=== PATIENT | female | born 1940 | race Caucasian/White ===

== ENCOUNTER 2023-03-10 03:00 | Inpatient (IN) | payer OTHER ==
[~2023-03-10] VITALS: Ht 160 cm; Wt 65.6 kg
[2023-03-10] VITALS (7 sets, daily range): BP systolic 107–133; BP diastolic 47–60; PULSE 55–83; RESP 17–18; TEMP 97.8–98; O2SAT 90–97
[2023-03-10 03:24] LABS: Basophils # (auto) 0.1 10 ^3/uL (0-0.2); Basophils % (auto) 0.9 % (0.0-2.0); Eosinophils # (auto) 0 10 ^3/uL (0-0.8); Eosinophils % (auto) 0.2 % (0.0-7.0); Hematocrit 42.7 % (36.0-46.0); Hemoglobin 14.1 g/dL (12.2-16.2); Lymphocytes % (auto) 9.2 % (10.0-50.0); Mean Corpuscular Hemoglobin 29.3 pg (28.0-32.0); Mean Corpuscular Hgb Conc. 33.1 g/dL (32.0-36.0); Mean Corpuscular Volume 88.7 fL (80.0-100.0); Monocytes # (auto) 0.2 10 ^3/uL (0-1.3); Monocytes % (auto) 2.1 % (0.0-12.0); Neutrophils # (auto) 9.2 10 ^3/uL (1.6-8.6); Neutrophils % (auto) 87.6 % (37.0-80.0); Red Blood Cells 4.82 10^6/uL (4.0-5.20); Red Cell Distribution Width 18.4 % (11.8-14.3); White Blood Cell 10.5 10^3/uL (4.4-10.8)
[2023-03-10] MEDS ORDERED: ONDANSETRON HCL 4 MG/2 ML VIAL IV ONE (03:30)
[2023-03-10] MEDS ORDERED: HYDROmorphone HCL 2 MG/ML VL/or syr IV ONE (03:30)
[2023-03-10] MEDS ORDERED: SODIUM CHLORIDE 0.9% 500 ML IV ONE (03:30)
[2023-03-10 03:42] LABS: Albumin 4.5 g/dL (3.2-4.8); Alkaline Phosphatase 111 U/L (46-116); Anion Gap 8 (5-15); Aspartate Aminotransferase 10 U/L (13-40); BUN/Creatinine Ratio 9.8 (10.0-20.0); Blood Urea Nitrogen 17 mg/dL (9-23); Calcium 11.1 mg/dL (8.7-10.4); Carbon Dioxide 28 mmol/L (20-30); Chloride 101 mmol/L (98-107); Glucose 211 mg/dL (74-106); Magnesium 1.9 mg/dL (1.6-2.6); Potassium 4.2 mmol/L (3.5-5.1); Sodium 137 mmol/L (136-145)
[2023-03-10 03:43] LABS: Bilirubin, Total 0.5 mg/dL (0.2-1.0); Total Protein 7.3 g/dL (5.7-8.2)
[2023-03-10 03:44] LABS: Alanine Aminotransferase < 9 U/L (7-40); INR 0.99 (0.9-1.15); Partial Thromboplastin Time 27.8 SEC (24.5-34.5); Prothrombin Time 10.4 sec (9.3-11.8)
[2023-03-10] MEDS ORDERED: LABETALOL HCL 5 MG/ML 4ML SYRINGE IV ONE (04:30)
[2023-03-10] MEDS ORDERED: MIDAZOLAM HCL 2MG/2ML 2ml VIAL (1mg/ml) IV ONE (06:00)
[2023-03-10] MEDS ORDERED: LIDOCAINE HCL 2% TOP JELLY 5ML TOP ONE (07:00)
[2023-03-10] MEDS ORDERED: hydrALAZINE HCL 20 MG/ML VL IV PRN (08:15)
[2023-03-10] MEDS ORDERED: ACETAMINOPHEN 325 MG TAB PO PRN (08:15)
[2023-03-10] MEDS ORDERED: DOCUSATE SOD 100 MG CAP PO PRN (08:15)
[2023-03-10] MEDS ORDERED: ONDANSETRON HCL 4 MG/2 ML VIAL IV PRN (08:15)
[2023-03-10] MEDS ORDERED: DexAMETHasone SOD PHOS 10MG/1ML VIAL INJ IV ONE (09:15)
[2023-03-10] MEDS ORDERED: NITROGLYCERIN 0.4 MG SL TAB SL PRN (09:15)
[2023-03-10] MEDS ORDERED: MORPHINE SULFATE INJ 2 MG/ml SYRG IV PRN (09:15)
[2023-03-10] MEDS ORDERED: DEXTROSE (50%) 50ML SYRG IV PRN (09:15)
[2023-03-10] MEDS: FUROSEMIDE 40 MG/4 ML VIAL IV SCH (09:25)
[2023-03-10] MEDS: AZITHROMYCIN 500MG/ 250ML 250 ML IV SCH (09:26)
[2023-03-10] MEDS: ASPirin 81 mg TAB PO SCH (09:26)
[2023-03-10] MEDS ORDERED: FAMOTIDINE (10MG/ML) 2ML VL IV SCH (10:00)
[2023-03-10] MEDS: DexAMETHasone SOD PHOS 10MG/1ML VIAL INJ IV SCH (10:43)
[2023-03-10] MEDS: HYDROcodone-ACET 5/325MG TAB PO PRN ×2 (10:43→22:41)
[2023-03-10] MEDS: CARVEDILOL 3.125 MG TAB PO SCH ×2 (10:44→21:05)
[2023-03-10] MEDS: InsuLIN REG 1unit/0.01ml Soln (100units/ml) SC SCH ×3 (12:15→20:00)
[2023-03-10] MEDS: ACCU-CHEK COMFORT CURVE STRIP VI SCH ×3 (12:15→20:00)
[2023-03-10] MEDS ORDERED: GASTROGRAFIN 120 ML SOL ONE (12:27)
[2023-03-10] MEDS ORDERED: OMNIPAQUE 12mg/ml 500ml ORAL SOLUTION PO ONE (13:10)
[2023-03-10] MEDS: SODIUM CHLOR 0.9% PF (SALINE LOCK) 10ML VIAL/SYR IV SCH ×2 (14:06→21:05)
[2023-03-10] MEDS ORDERED: ENOXAPARIN SOD 30 MG/0.3 ML SYRINGE SC ONE (14:30)
[2023-03-10] MEDS ORDERED: HYDR-4296 PO (17:22)
[2023-03-10] MEDS ORDERED: LEVO100T8 PO (17:33)
[2023-03-10] MEDS ORDERED: ISOS10TA2 PO (17:33)
[2023-03-10] MEDS ORDERED: CARV6.2551 PO (17:33)
[2023-03-10] MEDS ORDERED: AMIO200T33 PO (17:33)
[2023-03-10] MEDS ORDERED: DULO20CA PO (17:33)
[2023-03-10] MEDS ORDERED: POTA10TA51 PO (17:33)
[2023-03-10] MEDS ORDERED: FURO20TA3 PO (17:33)
[2023-03-10] MEDS ORDERED: ALLO100T PO (17:33)
[2023-03-10] MEDS ORDERED: DICY20TA PO (17:33)
[2023-03-10] MEDS ORDERED: PANT1INJ3 IV (17:33)
[2023-03-10] MEDS ORDERED: APIX5TAB PO (17:33)
[2023-03-10] MEDS ORDERED: CALC0.5C PO (17:33)
[2023-03-10] MEDS: AMIODARONE HCL 200 MG TAB PO SCH (21:03)
[2023-03-11] MEDS: ACCU-CHEK COMFORT CURVE STRIP VI SCH ×4 (00:21→12:12)
[2023-03-11] MEDS: InsuLIN REG 1unit/0.01ml Soln (100units/ml) SC SCH ×3 (04:00→08:00)
[2023-03-11 05:00] VITALS: BP 128/53; PULSE 68; RESP 18; TEMP 97.3; O2SAT 97
[2023-03-11] MEDS: SODIUM CHLOR 0.9% PF (SALINE LOCK) 10ML VIAL/SYR IV SCH ×3 (05:38→22:33)
[2023-03-11 08:00] VITALS: BP 123/41; PULSE 57; PULSE 58; PULSE 60; RESP 18; TEMP 98; O2SAT 96; O2SAT 97
[2023-03-11] MEDS: AZITHROMYCIN 500MG/ 250ML 250 ML IV SCH (10:28)
[2023-03-11] MEDS: AMIODARONE HCL 200 MG TAB PO SCH ×2 (10:30→22:31)
[2023-03-11] MEDS: ENOXAPARIN SOD 30 MG/0.3 ML SYRINGE SC SCH (10:30)
[2023-03-11 10:31] LABS: Basophils # (auto) 0 10 ^3/uL (0-0.2); Basophils % (auto) 0.3 % (0.0-2.0); Eosinophils # (auto) 0 10 ^3/uL (0-0.8); Hematocrit 31.3 % (36.0-46.0); Hemoglobin 10.3 g/dL (12.2-16.2); Lymphocytes % (auto) 14.3 % (10.0-50.0); Mean Corpuscular Hemoglobin 29.6 pg (28.0-32.0); Mean Corpuscular Hgb Conc. 32.8 g/dL (32.0-36.0); Mean Corpuscular Volume 90.3 fL (80.0-100.0); Monocytes # (auto) 0.3 10 ^3/uL (0-1.3); Neutrophils # (auto) 5.5 10 ^3/uL (1.6-8.6); Neutrophils % (auto) 81.4 % (37.0-80.0); Nucleated Red Blood Cells % 0.1 %; Red Blood Cells 3.47 10^6/uL (4.0-5.20); Red Cell Distribution Width 17.4 % (11.8-14.3); White Blood Cell 6.7 10^3/uL (4.4-10.8)
[2023-03-11] MEDS: CARVEDILOL 3.125 MG TAB PO SCH ×2 (10:35→22:00)
[2023-03-11] MEDS: ASPirin 81 mg TAB PO SCH (10:37)
[2023-03-11 10:45] LABS: Alanine Aminotransferase 12 U/L (7-40); Albumin 3.7 g/dL (3.2-4.8); Alkaline Phosphatase 69 U/L (46-116); Anion Gap 4 (5-15); Aspartate Aminotransferase 14 U/L (13-40); BUN/Creatinine Ratio 14.4 (10.0-20.0); Blood Urea Nitrogen 25 mg/dL (9-23); Calcium 9.6 mg/dL (8.5-10.1); Carbon Dioxide 31 mmol/L (20-30); Chloride 102 mmol/L (98-107); Glucose 109 mg/dL (74-106); Potassium 4.6 mmol/L (3.5-5.1); Sodium 137 mmol/L (136-145)
[2023-03-11 10:46] LABS: Bilirubin, Total 0.3 mg/dL (0.2-1.0); Total Protein 5.8 g/dL (5.7-8.2)
[2023-03-11 12:00] VITALS: BP 148/43; PULSE 60; RESP 22; TEMP 99.1; O2SAT 96
[2023-03-11] MEDS: DexAMETHasone SOD PHOS 10MG/1ML VIAL INJ IV SCH (12:12)
[2023-03-11] MEDS: FUROSEMIDE 40 MG/4 ML VIAL IV SCH (12:13)
[2023-03-11] MEDS ORDERED: MORPHINE SULFATE INJ 2 MG/ml SYRG IV PRN (12:45)
[2023-03-11] MEDS ORDERED: PANTOPRAZOLE 40 MG/10 ML VIAL INJ IV ONE (12:45)
[2023-03-11 16:00] VITALS: BP 137/53; PULSE 62; RESP 19; TEMP 98; O2SAT 94
[2023-03-11] MEDS ORDERED: CALC0.5C PO (17:23)
[2023-03-11] MEDS ORDERED: DULO20CA PO (17:23)
[2023-03-11] MEDS ORDERED: PANT40TA2 PO (17:23)
[2023-03-11] MEDS ORDERED: DICY20TA PO (17:23)
[2023-03-11] MEDS ORDERED: AMIO200T33 PO (17:23)
[2023-03-11] MEDS ORDERED: POTA10TA51 PO (17:23)
[2023-03-11] MEDS ORDERED: LEVO100T8 PO (17:23)
[2023-03-11] MEDS ORDERED: FURO20TA3 PO (17:23)
[2023-03-11] MEDS ORDERED: APIX5TAB PO (17:23)
[2023-03-11] MEDS ORDERED: HYDR25TA87 PO (17:23)
[2023-03-11] MEDS ORDERED: CARV6.2551 PO (17:23)
[2023-03-11] MEDS ORDERED: ALL100T PO (17:23)
[2023-03-11] MEDS: HYDROcodone-ACET 5/325MG TAB PO PRN (19:48)
[2023-03-11 20:00] VITALS: PULSE 61; RESP 19; O2SAT 95
[2023-03-11 22:00] VITALS: BP 121/45; PULSE 57; RESP 18; TEMP 97.7; O2SAT 92
[2023-03-12 05:00] VITALS: BP 130/77; PULSE 62; RESP 17; TEMP 98.2; O2SAT 96
[2023-03-12] MEDS: SODIUM CHLOR 0.9% PF (SALINE LOCK) 10ML VIAL/SYR IV SCH (06:00)
[2023-03-12] MEDS ORDERED: LEVOTHYROXINE SODIUM 100 MCG TAB PO SCH (07:00)
[2023-03-12 08:00] VITALS: PULSE 54
[2023-03-12 09:00] VITALS: BP 132/82; PULSE 56; RESP 16; TEMP 98.1; O2SAT 97
[2023-03-12] MEDS ORDERED: PANTOPRAZOLE 40 MG/10 ML VIAL INJ IV SCH (10:00)
[2023-03-12] MEDS: CARVEDILOL 3.125 MG TAB PO SCH (10:00)
[2023-03-12] MEDS ORDERED: FAMOTIDINE (10MG/ML) 2ML VL IV SCH (10:00)
[2023-03-12] MEDS: AMIODARONE HCL 200 MG TAB PO SCH (10:04)
[2023-03-12] MEDS: FUROSEMIDE 40 MG/4 ML VIAL IV SCH (10:07)
[2023-03-12] MEDS: ENOXAPARIN SOD 30 MG/0.3 ML SYRINGE SC SCH (10:08)
[2023-03-12] MEDS ORDERED: GASTROGRAFIN 120 ML SOL ONE (11:10)
[2023-03-12] MEDS ORDERED: EZ PAQUE SUSP 12OZ BTL ONE (11:10)
[2023-03-12] MEDS ORDERED: EZ-GAS II GRANULES (RADIOLOGY USE) PO ONE (11:10)
[2023-03-12] MEDS: HYDROcodone-ACET 5/325MG TAB PO PRN (11:18)
[2023-03-12] MEDS ORDERED: GASTROGRAFIN 30 ML SOL ONE (11:48)
== END 2023-03-12 13:30 | disposition left against medical advice (07) | DRG 391 ==
LOC: ER 03:00 → TELE 09:37 → EDBD 09:37 → TELE-EAST 15:30
PROVIDERS: ADMIT Internal Medicine; ATTEND Internal Medicine
DX: K22.2 Esophageal obstruction (principal); I50.33 Acute on chronic diastolic (congestive) heart failure; J96.01 Acute respiratory failure with hypoxia; J44.0 Chronic obstructive pulmonary disease with (acute) lower respiratory infection; I13.0 Hypertensive heart and chronic kidney disease with heart failure and stage 1 through stage 4 chronic kidney disease, or unspecified chronic kidney disease; K51.90 Ulcerative colitis, unspecified, without complications; I16.1 Hypertensive emergency; E83.52 Hypercalcemia; N18.9 Chronic kidney disease, unspecified; R73.9 Hyperglycemia, unspecified; Z53.29 Procedure and treatment not carried out because of patient's decision for other reasons; E03.9 Hypothyroidism, unspecified; I48.0 Paroxysmal atrial fibrillation; S91.302A Unspecified open wound, left foot, initial encounter; X58.XXXA Exposure to other specified factors, initial encounter; K21.9 Gastro-esophageal reflux disease without esophagitis; E78.5 Hyperlipidemia, unspecified; I35.0 Nonrheumatic aortic (valve) stenosis; Z79.01 Long term (current) use of anticoagulants; Z99.81 Dependence on supplemental oxygen; Z86.718 Personal history of other venous thrombosis and embolism; Y93.89 Activity, other specified; Y92.89 Other specified places as the place of occurrence of the external cause; Y99.8 Other external cause status
CPT/HCPCS: 36415; 71045; 74176; 74246; 80053; 82962; 83036; 83735; 83880; 84443; 84484; 85025; 85610; 85730; 93005; 93306; C9113; G0378; J1100; J2405; J3490